=== PATIENT | female | born 1955 | race Caucasian/White ===

== ENCOUNTER → 2016-10-24 | Outpatient (CLI) | payer BC ==
--- NOTE | 2016-10-24 16:10 | REPMRS ---
Patient History The patient states she had a clinical breast exam in 2015. Patient is postmenopausal and has history of breast cancer at age 54. No known family history of cancer. Took hormonal contraceptives for 10 years. Took unspecified hormones for 1 year. Digital Mammo Screening Bilat: October 24, 2016 - Exam #: [id number] Bilateral CC and MLO view(s) were taken. Technologist: Yvonne Jean, Technologist Prior study comparison: October 14, 2015, bilateral digital mammo screening bilat performed at [facility]. September 28, 2014, bilateral digital mammo screening bilat performed at [facility]. FINDINGS: There are scattered fibroglandular densities. There has been no change in the appearance of the mammogram from the prior studies. There is a mild amount of residual fibroglandular tissue which is fairly symmetric. There is no interval development of dominant mass, architectural distortion, or clustered microcalcification suggestive of malignancy. ASSESSMENT: BI-RADS/ACR category 1 mammogram. Negative. Recommendation Routine screening mammogram in 1 year (for women over age 40). This mammogram was interpreted with the aid of an FDA-approved computer-aided dectection system. Electronically Signed By: Charly Kang MD 10/24/16 [id number]
== END ==
LOC: M RAD 15:21
PROVIDERS: ATTEND Family Medicine
DX: Z12.31 Encounter for screening mammogram for malignant neoplasm of breast (principal)

== ENCOUNTER 2017-01-21 09:47 | Emergency (ER) | payer BC ==
[~2017-01-21] VITALS: Ht 162.6 cm; Wt 104.3 kg
[2017-01-21] MEDS ORDERED: METF500T PO (09:56)
[2017-01-21] MEDS ORDERED: GLIM1TAB PO (09:56)
[2017-01-21] MEDS: NS 1,000 ML IV SCH ×3 (10:23→11:10)
[2017-01-21] MEDS ORDERED: MORPHINE 4 MG/ML 1ML SYRINGE IV ONE (10:30)
[2017-01-21] MEDS ORDERED: ONDANSETRON 4MG/2ML VIAL (J2405) IV ONE (10:30)
[2017-01-21] MEDS ORDERED: GASTROGRAFIN SOLUTION 30ML PO ONE (10:50)
[2017-01-21 10:55] LABS: BASO % 0.8 % (0.0-1.0); EOS # 0.4 K/mm3 (0.0-0.50); EOS % 7.1 % (0.0-3.0); LARGE UNSTAINED CELL # 0.1 K/mm3 (0.0-0.4); LARGE UNSTAINED CELL % 1.8 % (0.0-4.0); LYMPH # 1.5 K/mm3 (1.5-4.5); LYMPH % 22.5 % (24.0-44.0); MEAN CORPUSCULAR HEMOGLOBIN 28.5 pg (27.0-33.0); MEAN CORPUSCULAR HGB CONC 31.7 g/dl (32.0-36.5); MEAN CORPUSCULAR VOLUME 89.9 fl (80.0-96.0); MONO # 0.4 K/mm3 (0.0-0.8); MONO % 6.3 % (0.0-5.0); NEUTROPHILS # 3.7 K/mm3 (1.8-7.7); NEUTROPHILS % 61.5 % (36.0-66.0); PLATELET COUNT, AUTOMATED 250 k/mm3 (150-450); RED CELL DISTRIBUTION WIDTH 14.2 % (11.5-14.5)
[2017-01-21] MEDS ORDERED: GASTROGRAFIN SOLUTION 30ML (Q9963) PO ONE (11:20)
[2017-01-21 11:26] LABS: ALBUMIN 3.7 GM/DL (3.2-5.2); ALBUMIN/GLOBULIN RATIO 0.82 (1.00-1.93); ALKALINE PHOSPHATASE 91 U/L (45-117); ALT/SGPT 44 U/L (12-78); ANION GAP 6 MEQ/L (8-16); AST/SGOT 39 U/L (15-37); BILIRUBIN,DIRECT 0.1 MG/DL (0.0-0.2); BILIRUBIN,TOTAL 0.5 MG/DL (0.2-1.0); BLOOD UREA NITROGEN 11 MG/DL (7-18); CALCIUM LEVEL 8.9 MG/DL (8.5-10.1); CARBON DIOXIDE LEVEL 28 MEQ/L (21-32); CHLORIDE LEVEL 107 MEQ/L (98-107); CREATININE FOR GFR 0.79 MG/DL (0.55-1.02); GLOMERULAR FILTRATION RATE > 60.0 (>51); GLUCOSE, FASTING 182 MG/DL (70-105); POTASSIUM SERUM 3.6 MEQ/L (3.5-5.1); SODIUM LEVEL 141 MEQ/L (136-145); TOTAL PROTEIN 8.2 GM/DL (6.4-8.2)
[2017-01-21] MEDS ORDERED: KETOROLAC 30 MG/ML VIAL (J1885) IV ONE (12:45)
[2017-01-21] MEDS ORDERED: KETO10TAB PO (12:58)
[2017-01-21] MEDS ORDERED: ZOFR4TAB3 PO (12:58)
[2017-01-21] MEDS ORDERED: FLOM5CAP PO (12:58)
[2017-01-21 13:01] VITALS: BP 100/62
--- NOTE | 2017-01-21 13:46 | REP ---
CT ABDOMEN AND PELVIS WITHOUT IV CONTRAST: CT abdomen and pelvis performed with oral contrast, but no IV contrast. Sagittal and coronal reconstruction images are performed. No consolidating infiltrate is seen in either visualized lung base. Liver, spleen, adrenals and pancreas are grossly unremarkable. Patient has had a prior cholecystectomy with metallic clips in the gallbladder fossa. There is mild right hydronephrosis caused by a 4 mm stone in the proximal right ureter. No bladder calculi are seen. There are moderate atherosclerotic calcifications of the abdominal aorta without aneurysm. There is no adenopathy. There is no free air or free fluid. There is no bowel wall thickening. There is sigmoid diverticulosis without definite diverticulitis. Patient appears to have had a hysterectomy. No pelvic mass is seen. The appendix is not visualized. No inflamed appendix is seen. IMPRESSION: There is a 4 mm calculus in the proximal right ureter causing mild right hydronephrosis. Signed by Charly Kang MD 01/21/2017 04:52 P
== END 2017-01-21 13:09 | disposition home or self-care (01) ==
LOC: M ED 10:22
DX: N20.1 Calculus of ureter (principal); N13.30 Unspecified hydronephrosis; E11.9 Type 2 diabetes mellitus without complications; Z87.442 Personal history of urinary calculi; Z79.84 Long term (current) use of oral hypoglycemic drugs; Z79.899 Other long term (current) drug therapy; Z91.040 Latex allergy status
CPT/HCPCS: 74176; 80048; 80076; 81001; 83690; 85025; 96374; 96375; 99283; J1885; J2405; Q9963

== ENCOUNTER 2017-03-04 19:05 | Emergency (ER) | payer BC ==
[~2017-03-04] VITALS: Ht 165.1 cm; Wt 104.5 kg
[~2017-03-04 19:05] MED LIST: FLOM5CAP PO; GLIM1TAB PO; KETO10TAB PO; METF500T13 PO; ZOFR4TAB3 PO
[2017-03-04 19:46] LABS: CALCIUM OXALATE CRYSTALS SMALL
[2017-03-04] MEDS ORDERED: KETOROLAC 30 MG/ML VIAL (J1885) As Ordered ONE (19:47)
[2017-03-04] MEDS ORDERED: ONDANSETRON 4MG/2ML VIAL (J2405) As Ordered ONE (19:47)
[2017-03-04] MEDS ORDERED: ONDANSETRON 4MG/2ML VIAL (J2405) IV ONE (20:00)
[2017-03-04] MEDS ORDERED: KETOROLAC 30 MG/ML VIAL (J1885) IV ONE (20:00)
[2017-03-04 20:08] LABS: BASO % 0.5 % (0.0-1.0); EOS # 0.5 K/mm3 (0.0-0.50); EOS % 6.8 % (0.0-3.0); LARGE UNSTAINED CELL # 0.2 K/mm3 (0.0-0.4); LARGE UNSTAINED CELL % 2.2 % (0.0-4.0); LYMPH # 1.6 K/mm3 (1.5-4.5); LYMPH % 23.2 % (24.0-44.0); MEAN CORPUSCULAR HEMOGLOBIN 29.1 pg (27.0-33.0); MEAN CORPUSCULAR HGB CONC 32.2 g/dl (32.0-36.5); MEAN CORPUSCULAR VOLUME 90.4 fl (80.0-96.0); MONO # 0.4 K/mm3 (0.0-0.8); MONO % 5.6 % (0.0-5.0); NEUTROPHILS # 4.2 K/mm3 (1.8-7.7); NEUTROPHILS % 61.7 % (36.0-66.0); PLATELET COUNT, AUTOMATED 259 k/mm3 (150-450); RED CELL DISTRIBUTION WIDTH 13.9 % (11.5-14.5); WHITE BLOOD COUNT 6.8 K/mm3 (4.0-10.0)
[2017-03-04 20:23] LABS: ANION GAP 6 MEQ/L (8-16); BLOOD UREA NITROGEN 13 MG/DL (7-18); CALCIUM LEVEL 9.2 MG/DL (8.5-10.1); CARBON DIOXIDE LEVEL 28 MEQ/L (21-32); CHLORIDE LEVEL 103 MEQ/L (98-107); CREATININE FOR GFR 0.79 MG/DL (0.55-1.02); GLOMERULAR FILTRATION RATE > 60.0 (>51); GLUCOSE, FASTING 146 MG/DL (70-105); POTASSIUM SERUM 3.8 MEQ/L (3.5-5.1); SODIUM LEVEL 137 MEQ/L (136-145)
--- NOTE | 2017-03-04 20:50 | REPUSA ---
CT of the abdomen and pelvis without contrast Clinical statement: Pain. Technique: Multiple axial CT images were obtained from the base of the lungs to the floor of the pelv is utilizing 5 mm axial slices without administration of contrast. Coronal and sagittal reconstructio ns were also obtained. Comparison: 01/21/2017. Findings: Chest: The visualized lung bases are clear. Abdomen: The kidneys are normal in size bilaterally. There is moderate right-sided hydronephrosis and hydroureter, caused by a 3 mm obstructing stone at the right ureterovesical junction. The liver, spl een, pancreas, and adrenal glands are unremarkable. The aorta demonstrates normal caliber and contour . There is no abdominal lymphadenopathy or ascites. Pelvis: The bowel is unremarkable, with no obstructive or inflammatory changes. There is mild sigmoid diverticulosis. The urinary bladder is within normal limits. There is no pelvic lymphadenopathy or a scites. The other pelvic structures appear unremarkable. Bones: There are no suspicious osseous abnormalities seen. Impression: Moderate right-sided hydronephrosis and hydroureter caused by a 3 mm obstructing stone at the right ureterovesical junction.
[2017-03-04 21:10] VITALS: BP 170/78
[2017-03-04] MEDS ORDERED: FLOM5CAP PO (21:14)
[2017-03-04] MEDS ORDERED: MACR100C43 PO (21:14)
[2017-03-04] MEDS ORDERED: NITROFURANTOIN (MACROBID) 100 MG CAP PO ONE (21:15)
[2017-03-04] MEDS ORDERED: TAMSULOSIN 0.4 MG CAP PO ONE (21:15)
== END 2017-03-04 21:28 | disposition home or self-care (01) ==
LOC: M ED 19:05
DX: N20.1 Calculus of ureter (principal); N13.30 Unspecified hydronephrosis; E11.9 Type 2 diabetes mellitus without complications; Z87.442 Personal history of urinary calculi; Z91.040 Latex allergy status
CPT/HCPCS: 74176; 80048; 81001; 85025; 86140; 96374; 96375; 99283; J1885; J2405

== ENCOUNTER → 2017-04-10 | Outpatient (REF) | payer BC ==
[~2017-04-10] MED LIST changes: +MACR100C43 PO
[2017-04-10 19:27] LABS: CALCIUM OXALATE CRYSTALS SMALL
== END ==
LOC: M SMT 16:52
PROVIDERS: ATTEND Nurse Practitioner Women's Health
DX: N13.2 Hydronephrosis with renal and ureteral calculous obstruction (principal)

== ENCOUNTER → 2017-10-25 | Outpatient (CLI) | payer BC | LOC: M RAD 15:15 | DX: N63.10 Unspecified lump in the right breast, unspecified quadrant (principal); Z85.3 Personal history of malignant neoplasm of breast ==

== ENCOUNTER 2018-04-10 06:34 | Day surgery (SDC) | payer BC ==
[2018-04-10] MEDS: NS 1,000 ML IV (07:04)
[2018-04-10] MEDS ORDERED: PROPOFOL 200 MG/20 ML VIAL As Ordered ×2 (07:41→07:47)
[2018-04-10] MEDS ORDERED: LIDOCAINE 2% INJ 100 MG/5 ML SDV (FOR ANES.) As Ordered (07:41)
== END 2018-04-10 08:36 | disposition home or self-care (01) ==
LOC: M OPP 06:34
DX: Z12.11 Encounter for screening for malignant neoplasm of colon (principal); K57.30 Diverticulosis of large intestine without perforation or abscess without bleeding; E10.9 Type 1 diabetes mellitus without complications; R10.9 Unspecified abdominal pain; R11.0 Nausea; E78.5 Hyperlipidemia, unspecified; R01.1 Cardiac murmur, unspecified; Z85.3 Personal history of malignant neoplasm of breast; Z92.3 Personal history of irradiation; M19.90 Unspecified osteoarthritis, unspecified site; Z87.442 Personal history of urinary calculi; E66.9 Obesity, unspecified; Z91.040 Latex allergy status; Z91.048 Other nonmedicinal substance allergy status; Z79.84 Long term (current) use of oral hypoglycemic drugs; Z79.899 Other long term (current) drug therapy
CPT/HCPCS: G0121

== ENCOUNTER 2018-04-15 15:30 | Emergency (ER) | payer BC ==
[2018-04-15 16:03] LABS: BEDSIDE GLUCOSE 190 MG/DL (80-115)
[2018-04-15 16:16] LABS: BASO # 0.1 10^3/uL (0.0-0.2); BASO % 0.8 % (0.0-1.0); EOS # 0.6 10^3/uL (0.0-0.50); EOS % 9.3 % (0.0-3.0); HEMATOCRIT 36.1 % (36.0-47.0); HEMOGLOBIN 11.5 g/dl (12.0-15.5); IMMATURE GRANULOCYTE % 0.5 % (0-3.0); LYMPH # 1.6 10^3/uL (1.5-4.5); LYMPH % 25.7 % (24.0-44.0); MEAN CORPUSCULAR HEMOGLOBIN 28.5 pg (27.0-33.0); MEAN CORPUSCULAR HGB CONC 31.9 g/dl (32.0-36.5); MEAN CORPUSCULAR VOLUME 89.6 fl (80.0-96.0); MONO # 0.6 10^3/uL (0.0-0.8); MONO % 9.4 % (0.0-5.0); NEUTROPHILS # 3.3 10^3/uL (1.8-7.7); NEUTROPHILS % 54.3 % (36.0-66.0); PLATELET COUNT, AUTOMATED 209 10^3/uL (150-450); RED BLOOD COUNT 4.03 10^6/uL (4.00-5.40); RED CELL DISTRIBUTION WIDTH 13.8 % (11.5-14.5); WHITE BLOOD COUNT 6.2 10^3/uL (4.0-10.0)
[2018-04-15 16:25] LABS: INR 0.95; PROTHROMBIN TIME 12.8 SECONDS (12.1-14.4)
[2018-04-15 16:41] LABS: ANION GAP 7 MEQ/L (8-16); BLOOD UREA NITROGEN 13 MG/DL (7-18); CALCIUM LEVEL 8.3 MG/DL (8.8-10.2); CARBON DIOXIDE LEVEL 29 MEQ/L (21-32); CHLORIDE LEVEL 107 MEQ/L (98-107); CPK CREATINE PHOSPHOKINASE 130 U/L (26-192); CREATININE FOR GFR 0.78 MG/DL (0.55-1.30); FREE T4 0.93 NG/DL (0.76-1.46); GLOMERULAR FILTRATION RATE > 60.0 (>45); GLUCOSE, FASTING 202 MG/DL (70-100); POTASSIUM SERUM 3.9 MEQ/L (3.5-5.1); SODIUM LEVEL 143 MEQ/L (136-145); TROPONIN I < 0.02 NG/ML (< 0.10)
[2018-04-15 16:46] LABS: CK-MB VALUE MASS 1.3 NG/ML (<3.6)
[2018-04-15 18:03] LABS: KETONE, URINE AUTO RFX NEGATIVE (NEGATIVE); LEUKOCYTE ESTERASE UR AUTO RFX NEGATIVE (NEGATIVE); NITRITE, URINE AUTO RFX NEGATIVE (NEGATIVE); RBC, URINE AUTO RFX 0 /HPF (0-3); SPECIFIC GRAVITY UR AUTO RFX 1.003 (1.002-1.035); SQUAM EPITHELIAL CELL UR AURFX 0 /HPF (0-6); WBC, URINE AUTO RFX 1 /HPF (0-3)
== END 2018-04-15 18:27 | disposition home or self-care (01) ==
LOC: M ED 15:30
DX: R55 Syncope and collapse (principal); E11.9 Type 2 diabetes mellitus without complications; I25.10 Atherosclerotic heart disease of native coronary artery without angina pectoris; E78.9 Disorder of lipoprotein metabolism, unspecified; Z79.899 Other long term (current) drug therapy; Z91.040 Latex allergy status; Z91.048 Other nonmedicinal substance allergy status
CPT/HCPCS: 71045

== ENCOUNTER → 2018-09-15 | Outpatient (REF) | payer BC ==
[~2018-09-15] MED LIST changes: +ATOR1TAB19; +CALCTAB60 PO; +FLOM0.4C39 PO; -FLOM5CAP PO; +GLYB25TA PO; +LASI20TA3 PO; +MULTCAP PO; +SIMV10TA2 PO; +TRUL10IN SQ; +ZOFR4TAB14 PO; -ZOFR4TAB3 PO
[2018-09-15 18:10] LABS: AMYLASE 88 U/L (25-115); LIPASE 158 U/L (73-393)
== END ==
LOC: M LAB REF 17:26
PROVIDERS: ATTEND Family Medicine
DX: R10.9 Unspecified abdominal pain (principal)

== ENCOUNTER → 2018-09-30 | Outpatient (REF) | payer BC ==
[2018-09-30 13:56] LABS: APPEARANCE, URINE HAZY (CLEAR); BACTERIA, URINE AUTO NEGATIVE (NEGATIVE); BILIRUBIN, URINE AUTO NEGATIVE (NEGATIVE); BLOOD, URINE BLOOD NEGATIVE (NEGATIVE); COLOR, URINE YELLOW (YELLOW); GLUCOSE, URINE (UA) AUTO 1+ mg/dL (NEGATIVE); KETONE, URINE AUTO NEGATIVE (NEGATIVE); LEUKOCYTE ESTERASE, URINE AUTO TRACE (NEGATIVE); MUCUS, URINE SMALL (NEGATIVE); NITRITE, URINE AUTO NEGATIVE (NEGATIVE); PROTEIN, URINE AUTO NEGATIVE (NEGATIVE); RBC, URINE AUTO 0 /HPF (0-3); SPECIFIC GRAVITY URINE AUTO 1.012 (1.002-1.035); SQUAMOUS EPITHELIAL CELL UR AU 7 /HPF (0-6); UROBILINOGEN, URINE AUTO 0.2 mg/dL (0.0-2.0); WBC, URINE AUTO 2 /HPF (0-3)
== END ==
LOC: M SMT 13:05
PROVIDERS: ATTEND Nurse Practitioner Women's Health
DX: N13.2 Hydronephrosis with renal and ureteral calculous obstruction (principal)

== ENCOUNTER → 2018-10-14 | Outpatient (CLI) | payer BC ==
--- NOTE | 2018-10-14 09:37 | REP ---
Chest two views HISTORY: Preop Comparison: None The lungs are clear. The heart is normal in size. The pulmonary vasculature is normal in appearance. Degenerative change is present in the thoracic spine. IMPRESSION: No acute disease. Electronically Signed by Davy Cabrera MD 10/14/2018 09:28 A
== END ==
LOC: M LAB 08:24
PROVIDERS: ATTEND Nurse Practitioner Women's Health
DX: N13.2 Hydronephrosis with renal and ureteral calculous obstruction (principal); Z01.812 Encounter for preprocedural laboratory examination

== ENCOUNTER → 2018-10-14 | Outpatient (REF) | payer BC ==
[2018-10-14 13:38] LABS: INR 0.98; PROTHROMBIN TIME 13.1 SECONDS (12.1-14.4)
== END ==
LOC: M LAB REF 12:33
PROVIDERS: ATTEND Family Medicine
DX: N13.2 Hydronephrosis with renal and ureteral calculous obstruction (principal); Z01.812 Encounter for preprocedural laboratory examination

== ENCOUNTER → 2018-10-16 | Outpatient (REF) | payer BC | LOC: M LAB REF 16:25 | PROVIDERS: ATTEND Family Medicine | DX: N13.2 Hydronephrosis with renal and ureteral calculous obstruction (principal) ==

== ENCOUNTER 2018-10-22 06:14 | Day surgery (SDC) | payer BC ==
[~2018-10-22] VITALS: Ht 162.6 cm; Wt 106.1 kg
[2018-10-22] MEDS ORDERED: LR 1,000 ML IV ONE (07:00)
[2018-10-22] MEDS ORDERED: fentaNYL 100 MCG/2 ML INJECTION (J3010) As Ordered ONE (07:15)
[2018-10-22] MEDS ORDERED: MIDAZOLAM INJ 2 MG/2 ML VIAL (J2250) As Ordered ONE (07:15)
[2018-10-22] MEDS ORDERED: LIDOCAINE 2% INJ 100 MG/5 ML SDV (FOR ANES.) As Ordered ONE (07:15)
[2018-10-22] MEDS ORDERED: PROPOFOL 200 MG/20 ML VIAL As Ordered ONE (07:15)
[2018-10-22] MEDS ORDERED: CONRAY-60 60% 50ML VIAL (Q9961) As Ordered ONE (07:21)
[2018-10-22] MEDS ORDERED: dexameTHASONE 4 MG/ML 1ML VIAL (J1100) As Ordered ONE (07:40)
[2018-10-22] MEDS ORDERED: ONDANSETRON 4MG/2ML VIAL (J2405) As Ordered ONE (07:43)
[2018-10-22] MEDS ORDERED: KETOROLAC 60 MG/2 ML VIAL (J1885) As Ordered ONE (07:43)
--- NOTE | 2018-10-22 08:36 | REP ---
C-ARM VIEWS DURING RIGHT URETERAL STENT PLACEMENT: Two AP views of the abdomen and pelvis were performed during right ureteral stent placement using a C-arm. Right ureteral stent is placed with the proximal end coiled in the right renal pelvis and the distal end coiled in the region of the urinary bladder. Contrast partially opacifies a mildly dilated right pelvicaliceal system. 9 second fluoroscopy time utilized. Electronically Signed by Charly Kang MD 10/22/2018 08:30 P
[2018-10-22] MEDS ORDERED: ONDANSETRON 4MG/2ML VIAL (J2405) IV PRN (08:45)
[2018-10-22] MEDS ORDERED: fentaNYL 100 MCG/2 ML INJECTION (J3010) IV PRN (08:45)
[2018-10-22] MEDS ORDERED: LR 1,000 ML IV SCH (08:45)
[2018-10-22] MEDS ORDERED: PERCOCET 5MG/325MG TAB PO PRN ×3 (08:45)
[2018-10-22 09:35] VITALS: BP 144/72
--- NOTE | 2018-10-22 10:08 | RO ---
DATE OF PROCEDURE: 10/22/2018 PREPROCEDURE DIAGNOSIS: Kidney stone. POSTPROCEDURE DIAGNOSIS: Kidney stone. PROCEDURE: Cystoscopy, right ureteroscopy with laser lithotripsy and basket extraction of stone, right retrograde pyelogram with intraoperative interpretation of images, right ureteral stent placement. SURGEON: Dr. Chi Howell RADIO EQUIPMENT INSTALLER: None. ANESTHESIA: General. OPERATIVE INDICATIONS: This is a 62-year-old female who was recently found to have was found to have an approximately 1 cm right ureteropelvic junction stone on CAT scan . She was brought to the operating room today for the above listed procedure. DESCRIPTION OF PROCEDURE: The patient was brought to the operating room where general anesthesia was induced. Specific antibiotics were infused. She was then placed in dorsal lithotomy position and prepped and draped in the usual sterile fashion. A rigid cystoscope was then inserted into the urethral meatus and advanced into the bladder. Once inside the bladder, a guidewire was advanced up the right collecting system. I then advanced the ureteral access sheath over the wire and up to the right collecting system. I then went up the access sheath with a flexible ureteroscope and examined the kidney. Within the lower pole of the kidney, the 1 cm stone was seen. The stone was then fragmented into smaller pieces using 200 micron laser fiber. Of note, the stone fragmented very easily. Once that was done, all of the larger fragments were removed using a basket. Once I was satisfied that all the larger fragments were removed, I examined the rest of the kidney and the only thing seen were a few small stone fragments that should be small enough to pass. A retrograde pyelogram was then performed and was notable for a mild amount of right hydronephrosis and no extravasation. I then withdrew the ureteroscope along with the access sheath and no additional stones were seen within the ureter. I then utilized the previously placed wire to advance a 6 Divehi x 22-32 cm JJ ureteral stent up into the right collecting system. The wire was then removed and there were adequate curls of the stent in the right renal pelvis and in the bladder. The bladder was then emptied of all fluid and this marked the conclusion of the procedure. The patient was then taken out of the dorsal lithotomy position, awakened from anesthesia and transported to the recovery room in stable condition. Estimated blood loss: 5 mL. Complications: None. Specimen: Kidney stone fragments. Plan: The patient will follow up in the clinic in a few weeks for stent removal.
--- NOTE | 2018-10-22 10:54 | RO ---
DATE OF PROCEDURE: 10/22/2018 PREPROCEDURE DIAGNOSIS: Kidney stone. POSTPROCEDURE DIAGNOSIS: Kidney stone. PROCEDURE: Cystoscopy, right ureteroscopy with laser lithotripsy and basket extraction of stones, right retrograde pyelogram with intraoperative interpretation of images, right ureteral stent placement. SURGEON: Dr. Chi Howell ORTHOPAEDIC TECHNOLOGIST: None. ANESTHESIA: General. OPERATIVE INDICATIONS: This 62-year-old female who was found to have an approximately 1 cm right ureteropelvic junction stone on recent CAT scan. She was brought to the operating room today for the above listed procedure. DESCRIPTION OF PROCEDURE: The patient was brought to the operating room, where general anesthesia was induced. Culture specific antibiotics were infused. She was then placed in the dorsal lithotomy position and prepped and draped in the usual sterile fashion. A rigid cystoscope was then inserted into the urethral meatus and advanced into the bladder. Once inside the bladder, a guidewire was advanced up the right collecting system. I then advanced the ureteral access sheath over the wire into the right collecting system. Once that was done, I then went up the ureteral access sheath with a flexible ureteroscope and examined the right kidney. In the lower pole, there was an approximately 1 cm stone seen. The stone was fragmented into smaller pieces with a 200 micron laser fiber. Of note, it fragmented easily. Once this was done, all the larger stone fragments were removed using a basket. Any remaining stone fragments that were left in were small enough to pass. I then examined the rest of the kidney and no large stones were seen. A retrograde pyelogram was performed and was notable for mild to moderate hydronephrosis with no extravasation. At this point, I withdrew the ureteroscope along with access sheath and no additional stones were seen within the ureter. I then utilized the wire to advance a #6-Indian x 22-32 cm JJ ureteral stent up the right collecting system. The wire was then removed, and there were adequate curls of the stent in the right renal pelvis and in the bladder. The bladder was then emptied of all fluid, and this marked the conclusion of the procedure. The patient was then taken out of the dorsal lithotomy position, awakened from anesthesia, and transported to the recovery room in stable condition. ESTIMATED BLOOD LOSS: 5 mL. COMPLICATIONS: None. SPECIMENS: Kidney stone fragments. PLAN: The patient will followup in the clinic in a few weeks for stent removal.
== END 2018-10-22 10:02 | disposition home or self-care (01) ==
LOC: M SDC 06:14
PROVIDERS: ATTEND Urology
DX: N20.0 Calculus of kidney (principal); E11.65 Type 2 diabetes mellitus with hyperglycemia; R06.02 Shortness of breath; E78.49 Other hyperlipidemia; R94.31 Abnormal electrocardiogram [ECG] [EKG]; R55 Syncope and collapse; R19.7 Diarrhea, unspecified; Z91.040 Latex allergy status; Z91.048 Other nonmedicinal substance allergy status; Z79.899 Other long term (current) drug therapy; Z79.84 Long term (current) use of oral hypoglycemic drugs; Z85.3 Personal history of malignant neoplasm of breast; Z78.0 Asymptomatic menopausal state; Z98.51 Tubal ligation status; Z92.3 Personal history of irradiation; Z90.710 Acquired absence of both cervix and uterus
CPT/HCPCS: 52356; 74420; 82360; 88300; C1769; C1894; C2617; J0690; J1100; J1885; J2250; J2405; J3010; Q9961

== ENCOUNTER → 2018-10-27 | Outpatient (CLI) | payer BC ==
--- NOTE | 2018-10-27 17:44 | REPMRS ---
Patient History The patient states she has not had a clinical breast exam in over a year. No known family history of cancer. Took hormonal contraceptives for 10 years. Took unspecified hormones for 1 year. Digital Mammo Screening Bilat: October 27, 2018 - Exam #: [id number] Bilateral CC and MLO view(s) were taken. Technologist: Yvonne Jean, Technologist Prior study comparison: October 25, 2017, digital mammo diagnostic bilateral performed at [facility]. October 24, 2016, bilateral digital mammo screening bilat performed at [facility]. FINDINGS: There are scattered fibroglandular densities. There has been no change in the appearance of the mammogram from the prior studies. There is a mild amount of residual fibroglandular tissue which is fairly symmetric. There is no interval development of dominant mass, architectural distortion, or clustered microcalcification suggestive of malignancy. Large coarse benign appearing right breast calcifications are stable. 3-D tomosynthesis shows no additional findings. No significant changes when compared with prior studies. Assessment: BI-RADS/ACR category 2 mammogram. Benign Findings. Recommendation Routine screening mammogram in 1 year (for women over age 40). This mammogram was interpreted with the aid of an FDA-approved computer-aided dectection system. A. Negative x-ray reports should not delay biopsy if a dominant or clinically suspicious mass is present. B. Four to eight percent of cancers are not identified by mammography. C. Adenosis and dense breast may obscure an underlying neoplasm. Electronically Signed By: Rick Mendoza MD 10/27/18 [id number]
== END ==
LOC: M RAD 11:13
PROVIDERS: ATTEND Family Medicine
DX: Z12.31 Encounter for screening mammogram for malignant neoplasm of breast (principal)

== ENCOUNTER → 2020-01-08 | Outpatient (CLI) | payer OTHER ==
[~2020-01-08] MED LIST changes: -GLIM1TAB PO; +GLIM1TAB4 PO; -SIMV10TA2 PO; +SIMV10TA21 PO
--- NOTE | 2020-01-08 13:18 | REPMRS ---
Patient History The patient states she has not had a clinical breast exam in over a year. No known family history of cancer. Took hormonal contraceptives for 10 years. Took unspecified hormones for 1 year. Digital Woman Screen Mammo: January 08, 2020 - Exam #: [id number] Bilateral CC and MLO view(s) were taken. Technologist: Yvonne Jean, Technologist Prior study comparison: October 27, 2018, bilateral digital mammo screening bilat, performed at [facility]. October 25, 2017, digital mammo diagnostic bilateral, performed at [facility]. October 24, 2016, bilateral digital mammo screening bilat, performed at [facility]. FINDINGS: There are scattered fibroglandular densities. The Volpara volumetric breast density category is:B. There are stable scattered right-sided calcifications and bilateral nodular changes. There has been no change in the appearance of the mammogram from the prior studies. There is a mild amount of scattered fibroglandular density which is fairly symmetric. There is no interval development of dominant mass, architectural distortion, or grouped microcalcification suggestive of malignancy. 3-D tomosynthesis shows no additional findings. Assessment: BI-RADS/ACR category 2 mammogram. Benign Findings. Recommendation Routine screening mammogram of both breasts in 1 year (for women over age 40). This mammogram was interpreted with the aid of an FDA-approved computer-aided dectection system. Electronically Signed By: Derick Menchaca MD 01/08/20 [id number]
== END ==
LOC: M WHC 11:29
PROVIDERS: ATTEND Family Medicine
DX: Z12.31 Encounter for screening mammogram for malignant neoplasm of breast (principal); R92.1 Mammographic calcification found on diagnostic imaging of breast

== ENCOUNTER → 2020-09-26 | Outpatient (REF) | payer OTHER ==
[2020-09-26 18:35] LABS: C REACTIVE PROTEIN QUANTITATIV < 0.30 MG/DL (0.00-0.30); RHEUMATOID FACTOR QUANT < 10.0 IU/ML (<15.0)
[2020-09-28 13:08] LABS: ANTINUCLEAR ANTIBODIES DIRECT Negative (Negative)
== END ==
LOC: M LAB REF 16:34
PROVIDERS: ATTEND Family Medicine
DX: M25.50 Pain in unspecified joint (principal)

== ENCOUNTER → 2021-01-09 | Outpatient (CLI) | payer OTHER ==
[~2021-01-09] MED LIST changes: +GLYB2.5T7 PO; -GLYB25TA PO
--- NOTE | 2021-01-09 11:48 | REPMRS ---
Patient History The patient states she has not had a clinical breast exam in over a year. Patient is postmenopausal, has history of breast cancer at age 54, and has history of cancer in the right breast at age 53. Family history of endometrial cancer at age 66 in sister. Malignant excisional biopsy of the right breast, 2010. Radiation therapy of the right breast, 2010. Took hormonal contraceptives for 10 years. Took unspecified hormones for 1 year. Pateint states no new breast complaints. patient has signed the [facility] history sheet. Digital Woman Screen Mammo: January 09, 2021 - Exam #: [id number] Bilateral CC and MLO view(s) were taken. Technologist: Juanita Yuan, Technologist Prior study comparison: January 08, 2020, bilateral digital woman screen mammo performed at [facility]. October 27, 2018, bilateral digital mammo screening bilat, performed at [facility]. October 25, 2017, digital mammo diagnostic bilateral, performed at [facility]. FINDINGS: There are scattered fibroglandular densities. The Volpara volumetric breast density category is:B. There has been no change in the appearance of the mammogram from the prior studies. There is a mild amount of scattered fibroglandular density which is fairly symmetric. There is no interval development of dominant mass, architectural distortion, or grouped microcalcification suggestive of malignancy. 3-D tomosynthesis shows no additional findings. Assessment: BI-RADS/ACR category 1 mammogram. Negative Mammogram. Recommendation Routine screening mammogram of both breasts in 1 year (for women over age 40). This mammogram was interpreted with the aid of an FDA-approved computer-aided dectection system. Electronically Signed By: Derick Menchaca MD 01/09/21 [id number]
== END ==
LOC: M WHC 10:48
PROVIDERS: ATTEND Family Medicine
DX: Z12.31 Encounter for screening mammogram for malignant neoplasm of breast (principal); Z85.3 Personal history of malignant neoplasm of breast

== ENCOUNTER → 2022-02-20 | Outpatient (CLI) | payer OTHER | LOC: M WHC 14:15 | PROVIDERS: ATTEND Family Medicine | DX: Z12.31 Encounter for screening mammogram for malignant neoplasm of breast (principal) ==

== ENCOUNTER 2022-05-04 20:16 | Observation (INO) | payer OTHER ==
[~2022-05-04] VITALS: Ht 170.2 cm; Wt 92.3 kg
[~2022-05-04 20:16] MED LIST changes: -ATOR1TAB19; +ATOR1TAB19 PO
[2022-05-04] MEDS ORDERED: TRUL10IN SC (20:40)
[2022-05-04] MEDS ORDERED: ONDANSETRON 4MG 2ML VIAL IV ONE (21:25)
[2022-05-04] MEDS ORDERED: MORPHINE 4 MG/ML 1ML VIAL/SYRINGE IV ONE (21:25)
[2022-05-04 21:41] LABS: BASO % 0.3 % (0.0-1.0); EOS % 0.2 % (0.0-3.0); HEMATOCRIT 40.7 % (36.0-47.0); LYMPH # 1.1 10^3/uL (1.5-5.0); LYMPH % 8.6 % (24.0-44.0); MEAN CORPUSCULAR HEMOGLOBIN 28.4 pg (27.0-33.0); MEAN CORPUSCULAR HGB CONC 31.9 g/dl (32.0-36.5); MEAN CORPUSCULAR VOLUME 88.9 fl (80.0-96.0); MONO # 0.9 10^3/uL (0.0-0.8); MONO % 7.5 % (2.0-8.0); NEUTROPHILS # 10.2 10^3/uL (1.5-8.5); NEUTROPHILS % 82.9 % (36.0-66.0); PLATELET COUNT, AUTOMATED 270 10^3/uL (150-450); RED BLOOD COUNT 4.58 10^6/uL (4.00-5.40); WHITE BLOOD COUNT 12.3 10^3/uL (4.0-10.0)
[2022-05-04 22:07] LABS: BLOOD UREA NITROGEN 18 MG/DL (7-18); CALCIUM LEVEL 9.4 MG/DL (8.8-10.2); CARBON DIOXIDE LEVEL 24 MEQ/L (21-32); CHLORIDE LEVEL 106 MEQ/L (98-107); CREATININE FOR GFR 0.88 MG/DL (0.55-1.30); GLOMERULAR FILTRATION RATE > 60.0 (>45); GLUCOSE, FASTING 147 MG/DL (70-100); POTASSIUM SERUM 3.6 MEQ/L (3.5-5.1); SODIUM LEVEL 139 MEQ/L (136-145)
[2022-05-04 22:22] LABS: CK-MB VALUE MASS 15.2 NG/ML (<3.6); MB/CK RELATIVE INDEX 1.26 (< OR =4)
[2022-05-04] MEDS ORDERED: NS 1,000 ML IV SCH (22:45)
[2022-05-04] MEDS ORDERED: ISOVUE-370 76% 100ML VIAL As Ordered ONE (22:46)
[2022-05-05] MEDS ORDERED: PERCOCET 5MG/325MG TAB PO ONE (00:25)
[2022-05-05] MEDS ORDERED: MORPHINE 4 MG/ML 1ML VIAL/SYRINGE IV ONE (00:25)
[2022-05-05] MEDS ORDERED: ONDANSETRON 4MG 2ML VIAL IV PRN (00:50)
[2022-05-05] MEDS ORDERED: DEXTROSE 50% 50 ML SYRINGE IV PRN (00:50)
[2022-05-05] MEDS ORDERED: MORPHINE 4 MG/ML 1ML VIAL/SYRINGE IV PRN (00:50)
[2022-05-05] MEDS: NS 1,000 ML IV SCH ×2 (00:50→07:00)
[2022-05-05] MEDS ORDERED: KETOROLAC 30 MG/ML 1ML VIAL IV PRN (00:50)
[2022-05-05] MEDS ORDERED: ACETAMINOPHEN TAB 650MG DOSE (2X325MG) PO PRN (00:50)
[2022-05-05] MEDS ORDERED: GLUCAGON INJ 1MG VIAL SC PRN (00:50)
[2022-05-05] MEDS ORDERED: GLUCOSE 4GM CHEW TABLET PO PRN (00:50)
[2022-05-05] MEDS ORDERED: TRUL0.5I SC (01:12)
[2022-05-05] MEDS ORDERED: MULT-90 PO (01:12)
[2022-05-05] MEDS ORDERED: ASPI81TA26 PO (01:13)
[2022-05-05] MEDS ORDERED: FAMO40TA3 PO (01:13)
[2022-05-05] MEDS ORDERED: HOME MED LIST COMPLETE! XX SCH (01:15)
[2022-05-05 02:09] LABS: RSV AMPLIFICATION NEGATIVE (NEGATIVE)
[2022-05-05] MEDS: INSULIN LISPRO (NovoLOG) PER UNIT SC SCH ×2 (05:54→12:11)
[2022-05-05 08:04] LABS: HEMATOCRIT 35.5 % (36.0-47.0); HEMOGLOBIN 11.1 g/dl (12.0-15.5); MEAN CORPUSCULAR HEMOGLOBIN 28.5 pg (27.0-33.0); MEAN CORPUSCULAR HGB CONC 31.3 g/dl (32.0-36.5); MEAN CORPUSCULAR VOLUME 91.3 fl (80.0-96.0); PLATELET COUNT, AUTOMATED 226 10^3/uL (150-450); RED BLOOD COUNT 3.89 10^6/uL (4.00-5.40)
[2022-05-05 08:16] LABS: INR 0.97; PROTHROMBIN TIME 13.3 SECONDS (12.7-14.5)
[2022-05-05 08:17] LABS: PARTIAL THROMBOPLASTIN TIME 27.2 SECONDS (25.9-37.0)
[2022-05-05 08:29] LABS: BLOOD UREA NITROGEN 16 MG/DL (7-18); CARBON DIOXIDE LEVEL 27 MEQ/L (21-32); CHLORIDE LEVEL 109 MEQ/L (98-107); CREATININE FOR GFR 0.82 MG/DL (0.55-1.30); GLOMERULAR FILTRATION RATE > 60.0 (>45); GLUCOSE, FASTING 175 MG/DL (70-100); POTASSIUM SERUM 4.3 MEQ/L (3.5-5.1); SODIUM LEVEL 140 MEQ/L (136-145)
[2022-05-05 08:30] LABS: CALCIUM LEVEL 8.6 MG/DL (8.8-10.2)
[2022-05-05] MEDS ORDERED: LIDOCAINE 5% (LIDODERM) PATCH TD SCH (09:00)
[2022-05-05] MEDS ORDERED: ACETAMINOPHEN TAB 650MG DOSE (2X325MG) PO SCH (10:00)
[2022-05-05] MEDS ORDERED: IBUP-1022 PO (12:34)
[2022-05-05] MEDS ORDERED: LIDO5TD TD (12:34)
[2022-05-05] MEDS ORDERED: ACET1TAB55 PO (12:34)
[2022-05-05 13:20] VITALS: BP 107/59
[2022-05-05] MEDS ORDERED: **NOTE PATIENT COMMENT** MISC XX SCH (21:00)
== END 2022-05-05 13:31 | disposition home or self-care (01) ==
LOC: EDBD 20:16 → EDSEX 20:16 → M ED 20:16 → M ED INP 05-05 00:46
PROVIDERS: ADMIT Family Medicine; ATTEND Family Medicine
DX: S42.201A Unspecified fracture of upper end of right humerus, initial encounter for closed fracture (principal); W01.0XXA Fall on same level from slipping, tripping and stumbling without subsequent striking against object, initial encounter; Y92.017 Garden or yard in single-family (private) house as the place of occurrence of the external cause; Y99.9 Unspecified external cause status; M62.82 Rhabdomyolysis; E11.9 Type 2 diabetes mellitus without complications; R74.8 Abnormal levels of other serum enzymes; E78.49 Other hyperlipidemia; Z85.3 Personal history of malignant neoplasm of breast; Z79.82 Long term (current) use of aspirin; Z79.84 Long term (current) use of oral hypoglycemic drugs; Z79.899 Other long term (current) drug therapy; Z91.040 Latex allergy status
CPT/HCPCS: 36415; 71260; 73060; 73090; 80048; 82550; 82553; 83735; 85025; 85027; 85610; 85730; 87631; 93005; 93041; 94760; 96361; 96374; 96375; 96376; 97161; 99285; J1815; J1885; J2270; J2405; Q9967

== ENCOUNTER → 2022-05-10 | Outpatient (CLI) | payer OTHER ==
[~2022-05-10] MED LIST changes: +ACET1TAB55 PO; +ASPI81TA26 PO; +FAMO40TA3 PO; +IBUP-1022 PO; +LIDO5TD TD; +MULT-90 PO; +TRUL0.5I SC; +TRUL10IN SC
== END ==
LOC: M SOG 15:43
PROVIDERS: ATTEND Physician Assistant
DX: M25.511 Pain in right shoulder (principal)

== ENCOUNTER → 2022-05-11 | Outpatient (CLI) | payer OTHER ==
[~2022-05-11] MED LIST changes: +PERC5TAB12 PO
== END ==
LOC: M RAD 10:02
PROVIDERS: ATTEND Physician Assistant
DX: S42.291A Other displaced fracture of upper end of right humerus, initial encounter for closed fracture (principal)

== ENCOUNTER 2022-05-15 14:30 | Day surgery (SDC) | payer OTHER ==
[~2022-05-15] VITALS: Ht 165.1 cm; Wt 92.5 kg
[~2022-05-15 14:30] MED LIST changes: +BUPIVACAINE HCL 0.25% 30ML VIAL As Ordered ONE; -PERC5TAB12 PO
[2022-05-15] MEDS ORDERED: D5W 250 ML IV ONE (15:25)
[2022-05-15] MEDS ORDERED: LR 1,000 ML IV SCH ×3 (15:25→19:30)
[2022-05-15] MEDS ORDERED: LIDOCAINE 1% SDV 5ML VIAL SC PRN (15:25)
[2022-05-15] MEDS ORDERED: fentaNYL 100 MCG/2 ML INJECTION As Ordered ONE (15:37)
[2022-05-15] MEDS ORDERED: MIDAZOLAM INJ 2MG/2ML VIAL (J2250 PER 1MG) As Ordered ONE (15:37)
[2022-05-15] MEDS ORDERED: ROCURONIUM BROMIDE 50 MG/5 ML VIAL As Ordered ONE ×2 (15:38→17:45)
[2022-05-15] MEDS ORDERED: propofoL 200 MG/20 ML VIAL As Ordered ONE (15:38)
[2022-05-15] MEDS ORDERED: dexameTHASONE 4 MG/ML 1ML VIAL (J1100 PER 1MG) As Ordered ONE (15:38)
[2022-05-15] MEDS ORDERED: LIDOCAINE 2% 100MG/5ML SDV (FOR ANES.) As Ordered ONE (15:38)
[2022-05-15] MEDS ORDERED: ONDANSETRON 4MG 2ML VIAL As Ordered ONE (15:38)
[2022-05-15] MEDS ORDERED: BUPIVACAINE/EPIN 0.25% 30 ML VIAL As Ordered ONE (15:49)
[2022-05-15] MEDS ORDERED: BACITRACIN OINTMENT 30GM TUBE As Ordered ONE (15:50)
[2022-05-15] MEDS ORDERED: MIDAZOLAM INJ 2MG/2ML VIAL (J2250 PER 1MG) IV PRN (15:50)
[2022-05-15] MEDS ORDERED: ROPIvacaine 0.5% 30ML INJECTION (J2795 PER 1MG) PN ONE (15:50)
[2022-05-15] MEDS ORDERED: fentaNYL 100 MCG/2 ML INJECTION IV PRN ×2 (15:50→19:30)
[2022-05-15] MEDS ORDERED: EPINEPHrine INJ 1 MG/ML 1ML AMP PN ONE (15:50)
[2022-05-15] MEDS ORDERED: dexameTHASONE 10MG/1ML VIAL PRES.FREE (J1100 PER 1MG) PN ONE (15:50)
[2022-05-15] MEDS ORDERED: ceFAZolin 2 GM/D5W 50 ML IV BAG (J0690 PER 500MG) As Ordered ONE (17:16)
[2022-05-15] MEDS ORDERED: LIDOCAINE W/EPINEPHRINE 1% 20ML VIAL As Ordered ONE (17:25)
[2022-05-15] MEDS ORDERED: ACETAMINOPHEN 1000MG 100ML IV BTL (OFIRMEV) (J0131 PER 10MG) As Ordered ONE (17:35)
[2022-05-15] MEDS ORDERED: ePHEDrine SULFATE 25 MG/5 ML(5MG/ML) SYRINGE As Ordered ONE (17:40)
[2022-05-15] MEDS ORDERED: SUGAMMADEX SODIUM 500 MG/5 ML VIAL (BRIDION) As Ordered ONE (18:05)
[2022-05-15] MEDS ORDERED: ONDANSETRON 4MG 2ML VIAL IV PRN (19:30)
[2022-05-15] MEDS ORDERED: MORPHINE 2 MG/ML 1ML VIAL IV PRN (19:30)
[2022-05-15] MEDS ORDERED: oxyCODONE 5MG TAB PO PRN (19:30)
[2022-05-15] MEDS ORDERED: PERC5TAB12 PO (20:00)
[2022-05-15 21:19] VITALS: BP 140/74
== END 2022-05-15 21:36 | disposition home or self-care (01) ==
LOC: M SDC 14:30
PROVIDERS: ATTEND Orthopaedic Surgery Hand Surgery
DX: S42.291A Other displaced fracture of upper end of right humerus, initial encounter for closed fracture (principal); W18.39XA Other fall on same level, initial encounter; Y92.007 Garden or yard of unspecified non-institutional (private) residence as the place of occurrence of the external cause; Y93.9 Activity, unspecified; Y99.9 Unspecified external cause status; E78.5 Hyperlipidemia, unspecified; E11.9 Type 2 diabetes mellitus without complications; Z79.82 Long term (current) use of aspirin; Z79.84 Long term (current) use of oral hypoglycemic drugs; Z79.899 Other long term (current) drug therapy; Z85.3 Personal history of malignant neoplasm of breast; Z92.3 Personal history of irradiation
CPT/HCPCS: 23615; 64415; 76000; 87635; C1713; J0131; J0690; J1100; J2250; J2405; J3010

== ENCOUNTER → 2022-05-25 | Outpatient (CLI) | payer OTHER ==
[~2022-05-25] MED LIST changes: -BUPIVACAINE HCL 0.25% 30ML VIAL As Ordered ONE; +PERC5TAB12 PO
== END ==
LOC: M SOG 10:37
PROVIDERS: ATTEND Orthopaedic Surgery Hand Surgery
DX: S42.351A Displaced comminuted fracture of shaft of humerus, right arm, initial encounter for closed fracture (principal)

== ENCOUNTER → 2022-06-14 | Outpatient (CLI) | payer OTHER | LOC: M SOG 13:03 | PROVIDERS: ATTEND Orthopaedic Surgery Hand Surgery | DX: S42.211D Unspecified displaced fracture of surgical neck of right humerus, subsequent encounter for fracture with routine healing (principal) ==

== ENCOUNTER → 2022-07-16 | Outpatient (CLI) | payer OTHER | LOC: M SOG 11:37 | PROVIDERS: ATTEND Physician Assistant | DX: S42.211D Unspecified displaced fracture of surgical neck of right humerus, subsequent encounter for fracture with routine healing (principal) ==

== ENCOUNTER → 2022-08-16 | Outpatient (CLI) | payer OTHER | LOC: M SOG 08:19 | PROVIDERS: ATTEND Physician Assistant | DX: S42.211D Unspecified displaced fracture of surgical neck of right humerus, subsequent encounter for fracture with routine healing (principal); Z53.9 Procedure and treatment not carried out, unspecified reason ==

== ENCOUNTER → 2023-02-22 | Outpatient (CLI) | payer MEDICARE | LOC: M WHC 14:11 | PROVIDERS: ATTEND Family Medicine | DX: Z12.31 Encounter for screening mammogram for malignant neoplasm of breast (principal) ==

== ENCOUNTER → 2023-06-03 | Outpatient (REF) | payer MEDICARE ==
[2023-06-03 18:57] LABS: FERRITIN 50.5 NG/ML (7.3-270.7)
== END ==
LOC: M LAB REF 16:22
PROVIDERS: ATTEND Family Medicine
DX: D64.9 Anemia, unspecified (principal)

== ENCOUNTER → 2023-09-11 | Outpatient (CLI) | payer MEDICARE | LOC: M RAD 13:16 | PROVIDERS: ATTEND Family Medicine | DX: I83.813 Varicose veins of bilateral lower extremities with pain (principal) ==

== ENCOUNTER → 2024-02-28 | Outpatient (CLI) | payer MEDICARE ==
[~2024-02-28] MED LIST changes: -GLIM1TAB4 PO; +GLIM1TAB84 PO
== END ==
LOC: M WHC 14:00
PROVIDERS: ATTEND Family Medicine
DX: Z12.31 Encounter for screening mammogram for malignant neoplasm of breast (principal)

== ENCOUNTER → 2024-10-08 | Outpatient (CLI) | payer MEDICARE | LOC: M WHC 08:03 | PROVIDERS: ATTEND Nurse Practitioner | DX: N64.4 Mastodynia (principal); Z90.11 Acquired absence of right breast and nipple; Z92.3 Personal history of irradiation; Z88.3 Allergy status to other anti-infective agents | CPT/HCPCS: 77065; G0279 ==

== ENCOUNTER → 2025-04-14 | Outpatient (CLI) | payer MEDICARE ==
[~2025-04-14] MED LIST changes: -FLOM0.4C39 PO; -IBUP-1022 PO; +IBUP600T42 PO; +TAMS-18 PO
== END ==
LOC: M WHC 14:18
PROVIDERS: ATTEND Family Medicine
DX: N63.10 Unspecified lump in the right breast, unspecified quadrant (principal); Z85.3 Personal history of malignant neoplasm of breast; Z13.820 Encounter for screening for osteoporosis; M85.89 Other specified disorders of bone density and structure, multiple sites
CPT/HCPCS: 76642; 77066; 77080; G0279

== ENCOUNTER → 2025-05-12 | Outpatient (CLI) | payer MEDICARE ==
[2025-05-12 07:43] VITALS: TEMP 98.3
[2025-05-12 08:35] VITALS: BP 148/82; O2SAT 98
== END ==
LOC: M WHCPRO 07:50
PROVIDERS: ATTEND Family Medicine
DX: C50.511 Malignant neoplasm of lower-outer quadrant of right female breast (principal); R92.8 Other abnormal and inconclusive findings on diagnostic imaging of breast; N63.13 Unspecified lump in the right breast, lower outer quadrant

== ENCOUNTER → 2025-06-01 | Outpatient (CLI) | payer MEDICARE | LOC: M PLALAB 10:29 | PROVIDERS: ATTEND Surgery | DX: C50.511 Malignant neoplasm of lower-outer quadrant of right female breast (principal); Z80.3 Family history of malignant neoplasm of breast; Z85.3 Personal history of malignant neoplasm of breast ==

== ENCOUNTER → 2025-06-08 | Outpatient (CLI) | payer MEDICARE ==
[~2025-06-08] MED LIST changes: +RA M500C PO; +SERT-141 PO
== END ==
LOC: M PLAIMG 13:19
PROVIDERS: ATTEND Surgery
DX: Z01.811 Encounter for preprocedural respiratory examination (principal); C50.511 Malignant neoplasm of lower-outer quadrant of right female breast

== ENCOUNTER → 2025-06-15 | Outpatient (CLI) | payer MEDICARE | LOC: M PLARAD 10:08 | PROVIDERS: ATTEND Surgery | DX: C50.511 Malignant neoplasm of lower-outer quadrant of right female breast (principal) | CPT/HCPCS: 78815; A9552 ==

== ENCOUNTER 2025-06-24 06:18 | Observation (INO) | payer MEDICARE ==
[2025-06-24] VITALS (10 sets, daily range): BP systolic 108–138; BP diastolic 56–66; TEMP 98.2–99; O2SAT 86–98
[~2025-06-24] VITALS: Ht 162.6 cm; Wt 87.2 kg
[2025-06-24] MEDS ORDERED: FAMOTIDINE 20 MG/2 ML VIAL IVP ONE (06:20)
[2025-06-24] MEDS ORDERED: MIDAZOLAM INJ 2 MG/2 ML VIAL As Ordered ONE (07:15)
[2025-06-24] MEDS ORDERED: HYDROmorphone HCL 2 MG/ML 1 ML VIAL As Ordered ONE (07:15)
[2025-06-24] MEDS ORDERED: dexAMETHasone 4 MG/ML 1 ML VIAL As Ordered ONE (07:16)
[2025-06-24] MEDS ORDERED: ONDANSETRON 4MG/2ML VIAL As Ordered ONE (07:16)
[2025-06-24] MEDS ORDERED: LIDOCAINE 2% 100 MG/5 ML SDV (FOR ANES.) As Ordered ONE (07:18)
[2025-06-24] MEDS ORDERED: SUGAMMADEX SODIUM 500 MG/5 ML VIAL As Ordered ONE (07:18)
[2025-06-24] MEDS ORDERED: ROCURONIUM BROMIDE 50MG/5ML VIAL As Ordered ONE (07:18)
[2025-06-24] MEDS: LR 1,000 ML IV SCH ×2 (07:19→16:22)
[2025-06-24] MEDS ORDERED: dexmedeTOMIDine (4 MCG/ML) 200 MCG/50 ML BTL As Ordered ONE (07:20)
[2025-06-24] MEDS ORDERED: ACETAMINOPHEN 1000MG/100ML IV BAG As Ordered ONE (07:21)
[2025-06-24] MEDS: SCOPOLAMINE 1MG TRANSDERMAL PATCH TOP ONE (07:22)
[2025-06-24] MEDS: ceFAZolin SOD 2 GM IV ONCE IV ONE (07:38)
[2025-06-24] MEDS: INSULIN LISPRO (NovoLOG) PER UNIT As Ordered ONE (10:07)
[2025-06-24] MEDS ORDERED: PHENYLephrine 500MCG 5ML (100MCG/ML) SYRINGE As Ordered ONE (10:43)
[2025-06-24] MEDS ORDERED: GLYCOPYRROLATE INJ 0.2 MG/ML 2 ML VIAL As Ordered ONE (10:45)
[2025-06-24] MEDS: TRANEXAMIC ACID 100 MG/ML 10ML VIAL As Ordered ONE (11:37)
[2025-06-24] MEDS ORDERED: MORPHINE 4 MG/ML 1 ML VIAL IV PRN (12:45)
[2025-06-24] MEDS ORDERED: HYDROMORPHONE HCL 0.5 MG/0.5 ML SYRINGE IV PRN (12:45)
[2025-06-24] MEDS ORDERED: ONDANSETRON 4MG/2ML VIAL IV PRN (12:45)
[2025-06-24] MEDS ORDERED: ACETAMINOPHEN 325 MG TAB PO PRN ×2 (12:45)
[2025-06-24] MEDS: ONDANSETRON 4MG/2ML VIAL IV SCH (14:03)
[2025-06-24] MEDS: DOCUSATE SODIUM 100 MG CAPSULE PO SCH (20:13)
[2025-06-24] MEDS: SERTRALINE HCL 25 MG TABLET PO SCH (20:13)
[2025-06-24] MEDS: ceFAZolin SODIUM 2 GM in DEXTROSE 5% (D5W) ADV/MINI-BAG 50 ML IV SCH (20:14)
[2025-06-25] VITALS: BP 118/59; TEMP 98.3; O2SAT 94
[2025-06-25 04:00] VITALS: BP 112/57; TEMP 98.3; O2SAT 92
[2025-06-25] MEDS ORDERED: OXYC-517 PO (08:17)
[2025-06-25] MEDS: SERTRALINE HCL 25 MG TABLET PO SCH (08:31)
[2025-06-25] MEDS: metFORMIN 500 MG TAB PO SCH (08:31)
== END 2025-06-25 09:45 | disposition home or self-care (01) ==
LOC: M SDC 06:18 → M RR INP 12:41 → M MS4PR 14:45
PROVIDERS: ADMIT Surgery; ATTEND Surgery
DX: C50.511 Malignant neoplasm of lower-outer quadrant of right female breast (principal); E11.9 Type 2 diabetes mellitus without complications; Z79.84 Long term (current) use of oral hypoglycemic drugs; D64.9 Anemia, unspecified; Z79.82 Long term (current) use of aspirin; Z79.899 Other long term (current) drug therapy; E78.5 Hyperlipidemia, unspecified; K21.9 Gastro-esophageal reflux disease without esophagitis; J30.9 Allergic rhinitis, unspecified; F32.A Depression, unspecified; F41.9 Anxiety disorder, unspecified
CPT/HCPCS: 14001; 14301; 14302; 19303; 38525; 38900; 88307; 96361; 96365; 96375; 96376; A9520; G0378; J0131; J0688; J1100; J1171; J1596; J2250; J2371; J2405; J2765; J3010

== ENCOUNTER → 2025-07-29 | Outpatient (CLI) | payer MEDICARE ==
[~2025-07-29] VITALS: Ht 162.6 cm; Wt 86.3 kg
[~2025-07-29] MED LIST changes: +DEXA4TA PO; +ONDA-84 PO; +OXYC-517 PO; +PROC10TA5 PO
[2025-07-29 12:20] VITALS: TEMP 98
[2025-07-29] MEDS: MIDAZOLAM INJ 2 MG/2 ML VIAL IV PRN (13:00)
[2025-07-29] MEDS: ceFAZolin SODIUM 2 GM in DEXTROSE 5% (D5W) ADV/MINI-BAG 50 ML IV ONE (13:00)
[2025-07-29] MEDS: NS (Normal Saline) 0.9% 1,000 ML IV SCH (13:00)
[2025-07-29] MEDS: LIDOCAINE 1% MDV 20 ML VIAL SC SCH (13:08)
[2025-07-29 13:41] VITALS: BP 147/75; O2SAT 97
== END ==
LOC: M IRPRO 11:53
PROVIDERS: ATTEND Specialist
DX: C50.919 Malignant neoplasm of unspecified site of unspecified female breast (principal)
CPT/HCPCS: 36561; 76937; 77001; 99152; J0688; J1642; J2250; J3010